=== PATIENT | male | born 1950 | race Caucasian/White ===

== ENCOUNTER 2016-06-18 09:35 | Day surgery (SDC) | payer MEDICARE, OTHER ==
--- NOTE | ~2016-06-18 | EGD ---
EGD REPORT [facility] [address] [address] NAME: RACHID VILLARREAL : [birth year] STATUS : REG [facility]#: [id number] AGE: 65 ADM/REG DATE : 06/18/16 MR#: [id number] REPORT SERV DATE: 06/18/16 DICTATED BY: GLEN BOLES DATE: 06/18/16 REPORT STATUS : Draft [facility]: [facility] DATE: 06/18/16 Pulmonology Patient Name: Rachid Villarreal Procedure Date: 06/18/2016 10:49 AM Date of : 1950 Attending MD: MAG BOLES MD Procedure Date No Time: 06/18/2016 Procedure: EBUS Indications: RUL lung nodule, CML, smoker Providers: MAG BOLES MD Referring MD: ANAHI RODRIGUEZ Medicines: Lidocaine 2% 20 mL Complications: No immediate complications Procedure: Pre-Anesthesia Assessment: - ASA Grade Assessment: III - A patient with severe systemic disease. - A History and Physical has been performed. Patient meds and allergies have been reviewed. The risks and benefits of the procedure and the sedation options and risks were discussed with the patient. All questions were answered and informed consent was obtained. Patient identification and proposed procedure were verified prior to the procedure by the physician and the nurse in the procedure room. Mental Status Examination: alert and oriented. Airway Examination: normal oropharyngeal airway. Respiratory Examination: clear to auscultation. CV Examination: normal and RRR, no murmurs, no S3 or S4. ASA Grade Assessment: III - A patient with severe systemic disease. After reviewing the risks and benefits, the patient was deemed in satisfactory condition to undergo the procedure. The anesthesia plan was to use general anesthesia. Immediately prior to administration of medications, the patient was re-assessed for adequacy to receive sedatives. The heart rate, respiratory rate, oxygen saturations, blood pressure, adequacy of pulmonary ventilation, and response to care were monitored throughout the procedure. The physical status of the patient was re-assessed after the procedure. After obtaining informed consent, the Bronchoscope was introduced through the mouth, via the endotracheal tube (the patient was intubated for the procedure) and advanced to the tracheobronchial tree. the BF [id number] was introduced through the mouth, via the endotracheal tube (the patient was intubated for the procedure) and advanced to the tracheobronchial tree. EGD REPORT [address] [address] NAME: RACHID VILLARREAL : [birth year] STATUS : REG [facility] [place] PAT#: [id number] AGE: 65 ADM/REG DATE : 06/18/16 MR#: [id number] REPORT SERV DATE: 06/18/16 DICTATED BY: GLEN BOLES DATE: 06/18/16 REPORT STATUS : Draft TRANSCRIBED BY: [facility] DATE: 06/18/16 The procedure was accomplished without difficulty. The patient tolerated the procedure well. Findings: The endotracheal tube is in good position. The visualized portion of the trachea is of normal caliber. The gisell is sharp. The tracheobronchial tree was examined to at least the first subsegmental level. Bronchial mucosa and anatomy are normal; there are no endobronchial lesions, and no secretions. EBUS TBNA of lymph node level 11L x 4 passes for cytology EBUS TBNA of lymph node level 7 x 4 passes for cytology EBUS TBNA of lymph node level 4R x 4 passes for cytology EBUS TBNA of lymph node level 11R x 4 passes for cytology and 2 for flow cytometry Using SuperDimension Edge catheter 180, peripheral probe EBUS 17s, and fluoroscopy, I performed the following biopsies: RUL lung nodule transbronchial needle aspirates x 6 passes for cytology RUL lung nodule transbronchial tri needle and tradition brush biopsy x 3 pass for cytology RUL lung nodule transbronchial forcep biopsies x 6 passes for histopathology ADRIANE endobronchial brush biopsies were performed for the Percepta Bronchoalveolar lavage was performed in the right upper lobe of the lung and sent for cell count, cytology, bacterial culture, viral smears \\T\\ culture, and fungal and AFB analysis. 180 mL of fluid were instilled. 20 mL were returned. The return was blood-tinged and cellular. Impression: Rapid On-Site Evaluation (ELIZABETH): Preliminary cytology is lymph node stations 11L,7, 4R, and 11R are negative for malignancy with lymph node tissue. The RUL lung lesion is a "SUSPICIOUS FOR ADENOCARCINOMA" (final results are pending). Recommendation: - Await test results. - Chest X-ray. - Follow up in clinic. - Follow up with referring physician. - Complete pulmonary function tests. Attending Participation: I personally performed the entire procedure. MAG BOLES MD 06/18/2016 12:18 PM This report has been signed electronically. Number of Addenda: 0 Note Initiated On: 06/18/2016 10:49 AM [address] [address]
--- NOTE | ~2016-06-18 | CN ---
Consultation Report [place] [address] [facility] [place]. [address] NAME: RACHID VILLARREAL : [birth year] STATUS : [facility]#: [id number] AGE: 65 ADM/REG DATE : 06/18/16 MR#: [id number] REPORT SERV DATE: 06/18/16 DICTATED BY: STEPHEN BOLES DATE: 06/18/16 REPORT STATUS : Draft TRANSCRIBED BY: MODL DATE: 06/18/16 CONSULTATION DATE OF CONSULTATION: Dear Dr. Piedra: Thank you for requesting my opinion regarding evaluation and management of Mr. Rachid Villarreal's suspicious FDG-avid right apical pulmonary nodule. The patient is a pleasant 65-year-old gentleman with a significant past medical history of COPD, CML/myelodysplastic syndrome, essential hypertension, anxiety, coronary artery disease, hyperlipidemia, hypothyroidism, GERD, history of prior respiratory failure and influenza, who presents to [facility] for formal evaluation of an enlarging stellate lesion in the right apex, compatible with potential neoplasm. The patient's PET-CT scan on 06/11/2016 demonstrated a maximum SUV of 1.2, rising up to 1.8 on delayed images. There was no additional pulmonary nodule, pleural effusion, mediastinal lymphadenopathy, or pericardial effusion appreciated. There was no evidence of extrathoracic disease. Mr. Villarreal states that he has chronic shortness of breath, well localized to the chest, nonradiating with no significant alleviating or exacerbating factors. He denies any current weight gain or weight loss, nausea, vomiting, diarrhea, or constipation. REVIEW OF SYSTEMS: A detailed 14-point review of systems was completed. Pertinent positives and negatives are listed above. PAST MEDICAL HISTORY: 1. History of chronic hypoxic respiratory failure. 2. Influenza A, requiring recent admission. 3. COPD. 4. Hypertension. 5. CML/myelodysplastic syndrome, status post chemotherapy, under the care of Dr. Piedra. 6. Anxiety. 7. Right upper lobe lung nodule. 8. Coronary artery disease, status post coronary artery bypass graft surgery. 9. Hyperlipidemia, mixed type. 10.Hypothyroidism. 11.GERD. 12.Osteoarthritis. PAST SURGICAL HISTORY: 1. As above. 2. Hernia repair. 3. Bilateral knee replacement. Consultation Report [place] [address] [place]. [address] NAME: RACHID VILLARREAL : 50 STATUS : [facility] PAT#: [id number] AGE: 65 ADM/REG DATE : 06/18/16 MR#: [id number] REPORT SERV DATE: 06/18/16 DICTATED BY: STEPHEN BOLES DATE: 06/18/16 REPORT STATUS : Draft TRANSCRIBED BY: MARIO DATE: 06/18/16 4. Partial thyroidectomy. 5. CABG and cardiac stent. FAMILY HISTORY: Coronary artery disease and diabetes. SOCIAL HISTORY: The patient quit smoking approximately 15 years ago. 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 He denies any significant alcohol or illicit drug abuse. PHYSICAL EXAMINATION: VITAL SIGNS: Reviewed and located in the paper chart. GENERAL: Chronically ill-appearing gentleman, in no acute distress. Able to communicate in full paragraphs at a time. HEENT: Normocephalic and atraumatic. Pupils are equal, round, and reactive to light and accommodation. Posterior oropharynx is clear. NECK: No JVD. No LAD. Trachea midline. CARDIOVASCULAR: Regular rate and rhythm. S1 and S2 present. LUNGS: Clear to auscultation bilaterally. ABDOMEN: Nontender and nondistended. Positive bowel sounds. EXTREMITIES: No clubbing, cyanosis, or edema. SKIN: No new rashes, lesions, or ulcers. PSYCHIATRIC: Alert and oriented x3. Appropriate mood and affect. Appropriate insight and judgment. NEUROLOGIC: 5/5 strength in upper and lower extremities. Cranial nerves II through XII intact. Gait not tested. DTRs not performed. LABORATORY DATA: PET-CT scan on 06/12/2016 was personally reviewed by me and I agree with the following interpretation. Marginal FDG uptake in the right apical pulmonary nodule. Overall size of the lesion has changed very little in the last year. ASSESSMENT AND PLAN: Mr. Rachid Villarreal is an extremely pleasant 65-year-old gentleman with a significant past medical history of prior heavy tobacco abuse, CML and chronic obstructive pulmonary disease, who presents to [facility] for formal evaluation of an enlarging right upper lobe stellate pulmonary nodule, CT scan on 05/19/2016 measured 1.6 x 0.8 cm, PET CT scan on 06/11/2016 demonstrated maximum SUV rising from 1.2 to 1.8 on delayed images. The clinical and radiographic presentation is most consistent with either a slow-growing malignancy such as adenocarcinoma in situ or adenocarcinoma or an inflammatory lesion. At this point, Mr. Villarreal needs an appropriate diagnostic intervention versus continued surveillance. The patient declined continued surveillance. He would like to pursue biopsy. We discussed in detail options including CT-guided needle biopsy, EBUS and navigation bronchoscopy, or thoracic surgery. After careful discussion of the risks, benefits and alternatives to each of these procedures, we agreed to proceed forward with EBUS and navigation bronchoscopy. The patient is aware that the procedure is associated with potential life-threatening risks, including lung collapse, respiratory failure, and even . Consultation Report [facility] [address] [facility] [place]. [address] NAME: RACHID VILLARREAL : 50 STATUS : [facility]#: [id number] AGE: 65 ADM/REG DATE : 06/18/16 MR#: [id number] REPORT SERV DATE: 06/18/16 DICTATED BY: STEPHEN BOLES DATE: 06/18/16 REPORT STATUS : Draft TRANSCRIBED BY: MARIO DATE: 06/18/16 A summary of my recommendations are as follows: 1. Proceed with EBUS and navigation bronchoscopy. 2. Pulmonary function tests were last performed on 03/08/2015, which demonstrated an FEV1 of 1.7 L or 49% predicted, consistent with severe airflow obstruction and a DLCO of 42%. The patient will require repeat pulmonary function tests to assess operative ability. If proven to have malignant disease, the patient may be a candidate for right upper lobe wedge resection/lobectomy or stereotactic body radiation therapy. 3. Follow up with Dr. Jovita Walters at [facility] in [place]. Thank you for allowing me to participate in Mr. Villarreal's care. RAVINDER/MARIO Stephen Boles M.D. / [id number] CC: Kadeem Schmidt M.D. Michael Stipanov, M.D.
--- NOTE | ~2016-06-18 | EGD ---
EGD REPORT [facility] [address] [address] NAME: RACHID VILLARREAL : [birth year] STATUS : [facility]#: [id number] AGE: 65 ADM/REG DATE : 06/18/16 MR#: [id number] REPORT SERV DATE: 06/20/16 DICTATED BY: GLEN BOLES DATE: 06/20/16 REPORT STATUS : Draft TRANSCRIBED BY: [facility] DATE: 06/20/16 Pulmonology Patient Name: Rachid Villarreal Procedure Date: 06/18/2016 10:49 AM Date of : 1950 Attending MD: MAG BOLES MD Procedure Date No Time: 06/18/2016 Procedure: EBUS Indications: RUL lung nodule, CML, smoker Providers: MAG BOLES MD Referring MD: ANAHI RODRIGUEZ Medicines: Lidocaine 2% 20 mL Complications: No immediate complications Procedure: Pre-Anesthesia Assessment: - ASA Grade Assessment: III - A patient with severe systemic disease. - A History and Physical has been performed. Patient meds and allergies have been reviewed. The risks and benefits of the procedure and the sedation options and risks were discussed with the patient. All questions were answered and informed consent was obtained. Patient identification and proposed procedure were verified prior to the procedure by the physician and the nurse in the procedure room. Mental Status Examination: alert and oriented. Airway Examination: normal oropharyngeal airway. Respiratory Examination: clear to auscultation. CV Examination: normal and RRR, no murmurs, no S3 or S4. ASA Grade Assessment: III - A patient with severe systemic disease. After reviewing the risks and benefits, the patient was deemed in satisfactory condition to undergo the procedure. The anesthesia plan was to use general anesthesia. Immediately prior to administration of medications, the patient was re-assessed for adequacy to receive sedatives. The heart rate, respiratory rate, oxygen saturations, blood pressure, adequacy of pulmonary ventilation, and response to care were monitored throughout the procedure. The physical status of the patient was re-assessed after the procedure. After obtaining informed consent, the Bronchoscope was introduced through the mouth, via the endotracheal tube (the patient was intubated for the procedure) and advanced to the tracheobronchial tree. the BF [id number] was introduced through the mouth, via the endotracheal tube (the patient was intubated for the procedure) and advanced to the tracheobronchial tree. EGD REPORT [address] [address] NAME: RACHID VILLARREAL : [birth year] STATUS : [facility]#: [id number] AGE: 65 ADM/REG DATE : 06/18/16 MR#: [id number] REPORT SERV DATE: 06/20/16 DICTATED BY: GLEN BOLES DATE: 06/20/16 REPORT STATUS : Draft TRANSCRIBED BY: [facility] DATE: 06/20/16 The procedure was accomplished without difficulty. The patient tolerated the procedure well. Findings: The endotracheal tube is in good position. The visualized portion of the trachea is of normal caliber. The gisell is sharp. The tracheobronchial tree was examined to at least the first subsegmental level. Bronchial mucosa and anatomy are normal; there are no endobronchial lesions, and no secretions. EBUS TBNA of lymph node level 11L x 4 passes for cytology EBUS TBNA of lymph node level 7 x 4 passes for cytology EBUS TBNA of lymph node level 4R x 4 passes for cytology EBUS TBNA of lymph node level 11R x 4 passes for cytology and 2 for flow cytometry Using SuperDimension Edge catheter 180, peripheral probe EBUS 17s, and fluoroscopy, I performed the following biopsies: RUL lung nodule transbronchial needle aspirates x 6 passes for cytology RUL lung nodule transbronchial tri needle and tradition brush biopsy x 3 pass for cytology RUL lung nodule transbronchial forcep biopsies x 6 passes for histopathology ADRIANE endobronchial brush biopsies were performed for the Percepta Bronchoalveolar lavage was performed in the right upper lobe of the lung and sent for cell count, cytology, bacterial culture, viral smears \\T\\ culture, and fungal and AFB analysis. 180 mL of fluid were instilled. 20 mL were returned. The return was blood-tinged and cellular. Impression: Rapid On-Site Evaluation (ELIZABETH): Preliminary cytology is lymph node stations 11L,7, 4R, and 11R are negative for malignancy with lymph node tissue. The RUL lung lesion is a "SUSPICIOUS FOR ADENOCARCINOMA" (final results are pending). Recommendation: - Await test results. - Chest X-ray. - Follow up in clinic. - Follow up with referring physician. - Complete pulmonary function tests. Attending Participation: I personally performed the entire procedure. MAG BOLES MD 06/18/2016 12:18 PM This report has been signed electronically. Number of Addenda: 0 Note Initiated On: 06/18/2016 10:49 AM [address] [address]
[~2016-06-18 09:35] MED LIST: ADVAIR INH; ADVAIR250 INH; ALBUTEROL0.63 MG/3 INH; ATV1 PO; COMBIVENT INH; COMBIVENT RESPIM4 GM INH; CRESTOR5 MG PO; FISH-EPA1000 MG PO; FLOMAX4 PO; FLONASE NAS; HALF81 PO; ISOSORB DIN30 MG PO; L40 PO; METHOC500B PO; MUCINEX600 MG PO; NEUR100 PO; NIACIN 500 PO; NITROSPRAY SL; NITROSTAT0.4 MG SL; PERCOCET 10/3251 TAB PO; PERCOCET1 TA2 PO; PLAVIX PO; PR12.5 PO; PRAVAC PO; PRED50B PO; PRILOSEC40 MG PO; PRIN20 PO; PRIN5 PO; PROAIR HFA INH; PROAIRRESP INH; PROTONIX PO; RANITIDINE300 MG PO; SPIRIVA INH; TAMIFLU PO; TASIGNA150 MG PO
[2016-06-18 10:17] LABS: BASOPHILS 0.5 %; BASOPHILS ABSOLUTE 0.04 10/3/uL (0.0-0.16); EOSINOPHILS 3.6 %; EOSINOPHILS ABSOLUTE 0.27 10/3/uL (0.0-0.53); HEMOGLOBIN 12.1 g/dL (13.6-17.8); IMMATURE GRANULOCYTES 0.1 %; IMMATURE GRANULOCYTES ABSOLUTE 0.01 10/3/uL (0.0-0.11); LYMPHOCYTES 19.8 %; MEAN CORPUS HGB CONC 32.7 g/dL (32.0-36.0); MEAN PLATELET VOLUME 9.3 fL (9.2-13.0); MONOCYTES 7.3 %; MONOCYTES ABSOLUTE 0.55 10/3/uL (0.21-1.20); NEUTROPHILS 68.7 %; NEUTROPHILS ABSOLUTE 5.21 10/3/uL (2.02-8.40); PLATELET COUNT 173 10/3/uL (150-400); RBC DISTRIBUTION WIDTH 13.2 % (12.0-16.0)
[2016-06-18 10:25] LABS: MANUAL DIFF NO %; MEAN CORPUSCULAR HEMOGLOB 32.6 pg (26.0-34.0); MEAN CORPUSCULAR VOLUME 99.7 fL (80-100); RED CELL COUNT 3.71 10/6/uL (4.7-6.1); WHITE BLOOD CELLS 7.6 10/3/uL (4.5-10.5)
[2016-06-18 10:27] LABS: INTERNATIONAL NORMAL RATI 1.2 UNITS (-); PARTIAL THROMBO TIME 28.8 SEC (22.5-37.2); PROTIME (NOT ORD) 14.9 SEC (12.0-14.5)
[2016-06-18 10:29] LABS: BUN (BLOOD UREA NITROGEN) 10 MG/DL (6-23); CALCIUM, SERUM 8.6 MG/DL (8.5-10.4); CHLORIDE, SERUM 100 MMOL/L (96-112); CO2 (CARBON DIOXIDE) 31 MMOL/L (24-34); CREATININE 0.73 MG/DL (0.70-1.30); GFR AFRICAN AMERICAN 113 ML/MIN (>=60); GFR NON AFRICAN AMERICAN 97 ML/MIN (>=60); GLUCOSE, SERUM 131 MG/DL (60-99); POTASSIUM, SERUM 4.3 MMOL/L (3.5-5.3); SODIUM, SERUM 140 MMOL/L (135-148)
[2016-06-18 14:50] LABS: BD FL SOURCE (NOT ORD) BAL
[2016-06-18 15:43] LABS: BD FL LYMPH (NOT ORD) 8 %; BF BASO (NOT OF) 0 %; BF LARGE MONONUCLEAR 84 %; BODY FLUID EOS (NOT ORD) 0 %; BODY FLUID SEG (NOT ORD) 8 %
[2016-06-18 17:35] LABS: BF TOTAL CELL CT (NOT ORD 28 /MM3; BODY FLUID RBC (NOT ORD) 2000 /MM3
[2016-06-26] MEDS ORDERED: COMBIVENT RESPIM4 GM INH (14:38)
== END 2016-06-18 15:29 | disposition home or self-care (01) ==
LOC: DMU 09:35
PROVIDERS: Internal Medicine
PROC: 07B74ZX Excision of Thorax Lymphatic, Percutaneous Endoscopic Approach, Diagnostic (ICD-10-PCS; principal; 2016-06-18 11:00)
PROC: 0BB48ZX Excision of Right Upper Lobe Bronchus, Via Natural or Artificial Opening Endoscopic, Diagnostic (ICD-10-PCS; 2016-06-18 11:00)
PROC: 0B948ZX Drainage of Right Upper Lobe Bronchus, Via Natural or Artificial Opening Endoscopic, Diagnostic (ICD-10-PCS; 2016-06-18 11:00)
DX: R91.8 Other nonspecific abnormal finding of lung field (principal); I25.10 Atherosclerotic heart disease of native coronary artery without angina pectoris; C92.Z0 Other myeloid leukemia not having achieved remission; J44.9 Chronic obstructive pulmonary disease, unspecified; I10 Essential (primary) hypertension; K21.9 Gastro-esophageal reflux disease without esophagitis; E03.9 Hypothyroidism, unspecified; Z95.1 Presence of aortocoronary bypass graft; Z88.5 Allergy status to narcotic agent; E78.00 Pure hypercholesterolemia, unspecified; Z87.891 Personal history of nicotine dependence; Z87.01 Personal history of pneumonia (recurrent); Z96.653 Presence of artificial knee joint, bilateral; Z98.890 Other specified postprocedural states; Z79.899 Other long term (current) drug therapy
CPT/HCPCS: 71010; 80048; 85025; 85610; 85730; 87015; 87070; 87101; 87102; 87116; 87205; 88112; 88172; 88173; 88305; 88333; 89051; 93005; C1725; C1769; J2370; J2405; J2710; J3010

== ENCOUNTER 2016-07-04 06:36 | Inpatient (IN) | payer MEDICARE, OTHER ==
[2016-06-28 09:48] LABS: BASOPHILS 0.5 %; BASOPHILS ABSOLUTE 0.05 10/3/uL (0.0-0.16); EOSINOPHILS 1.4 %; EOSINOPHILS ABSOLUTE 0.13 10/3/uL (0.0-0.53); IMMATURE GRANULOCYTES 0.2 %; IMMATURE GRANULOCYTES ABSOLUTE 0.02 10/3/uL (0.0-0.11); LYMPHOCYTES 17.4 %; LYMPHOCYTES ABSOLUTE 1.59 10/3/uL (0.67-4.30); MEAN CORPUS HGB CONC 32.9 g/dL (32.0-36.0); MEAN PLATELET VOLUME 8.4 fL (9.2-13.0); MONOCYTES 5.5 %; NEUTROPHILS ABSOLUTE 6.84 10/3/uL (2.02-8.40); RBC DISTRIBUTION WIDTH 14.6 % (12.0-16.0); WHITE BLOOD CELLS 9.1 10/3/uL (4.5-10.5)
[2016-06-28 09:49] LABS: HEMATOCRIT 42.5 % (40.0-51.0); MANUAL DIFF NO %; MEAN CORPUSCULAR HEMOGLOB 27.3 pg (26.0-34.0); MEAN CORPUSCULAR VOLUME 82.8 fL (80-100); PLATELET COUNT 251 10/3/uL (150-400); RED CELL COUNT 5.13 10/6/uL (4.7-6.1)
[2016-06-28 09:57] LABS: INTERNATIONAL NORMAL RATI 1.1 UNITS (-)
[2016-06-28 10:07] LABS: A/G RATIO 1.1 (0.7-1.9); ALBUMIN 3.7 G/DL (3.5-5.0); ALKALINE PHOSPHATASE 76 U/L (45-117); BUN (BLOOD UREA NITROGEN) 12 MG/DL (6-23); CALCIUM, SERUM 8.4 MG/DL (8.5-10.4); CHLORIDE, SERUM 107 MMOL/L (96-112); CO2 (CARBON DIOXIDE) 27 MMOL/L (24-34); GFR AFRICAN AMERICAN 81 ML/MIN (>=60); GFR NON AFRICAN AMERICAN 70 ML/MIN (>=60); GLOBULIN 3.4 G/DL (2.5-4.1); GLUCOSE, SERUM 93 MG/DL (60-99); POTASSIUM, SERUM 4.4 MMOL/L (3.5-5.3); SGOT(AST) 12 U/L (5-40); SGPT(ALT) 24 U/L (5-65); SODIUM, SERUM 141 MMOL/L (135-148); TOTAL BILIRUBIN 1.5 MG/DL (0-1.2); TOTAL PROTEIN 7.1 G/DL (6.0-8.5)
[2016-06-28 12:03] LABS: ASCORBIC ACID (UR NOT ORDER) NEG (NEG); BILIRUBIN, URINE NEGATIVE (NEG); KETONE, URINE NEGATIVE (NEG); LEUKOCYTE ESTERASE(NOT OR NEG (NEG); WBC (NOT ORDERED) (RFLEX) 1 (0-5)
--- NOTE | ~2016-07-04 | OP ---
Record Of Operation [facility] [address] [place]. [address] NAME: RODNEY LOAIZA : [birth year] STATUS : ADM IN PAT#: [id number] AGE: 65 ADM/REG DATE : 07/04/16 MR#: [id number] REPORT SERV DATE: 07/04/16 DICTATED BY: KAROLINE PISANO JR. DATE: 07/04/16 REPORT STATUS : Draft TRANSCRIBED BY: MODL DATE: 07/04/16 DATE OF PROCEDURE: 07/04/2016 PREOPERATIVE DIAGNOSES: Adenocarcinoma, right upper lobe, chronic obstructive pulmonary disease, coronary artery disease, status post previous coronary artery bypass surgery, hypertension, hyperlipidemia, myeloid leukemia, heart palpitations, and home oxygen. POSTOPERATIVE DIAGNOSES: Adenocarcinoma, right upper lobe; chronic obstructive pulmonary disease, coronary artery disease, status post previous coronary artery bypass surgery, hypertension, hyperlipidemia, myeloid leukemia, heart palpitations, and home oxygen. NAME OF OPERATION: Bronchoscopy, right upper lobe apical segmentectomy, complete mediastinal node dissection, kathleen stations 4R, 7, 9, 10R, and intercostal nerve block. SURGEON: Karoline Pisano M.D. RESIDENT SURGEON: Kris Saunders MD ART PREPARATOR: Karen Zarco. ANESTHESIA: General endotracheal. FINDINGS: The patient was noted to have mild adhesions within the chest cavity. There was an obvious tumor coming up to the visceral surface of the lung in the right upper lobe apical region. We were able to remove his right upper lobe apical segment with grossly margins very clear at the tumor. Mediastinal nodes were sampled in the right paratracheal, right mainstem bronchial, subcarinal, and inferior pulmonary ligament regions. Final pathology is pending. DETAILS OF OPERATION: After adequate general anesthesia, the patient was intubated. A bronchoscopy was performed noting no endobronchial lesions. Mucous secretions were evacuated. There was no contraindications to resection. A left-sided double-lumen endotracheal tube was then placed. The patient was then positioned in the left lateral decubitus position with the right chest was prepped and draped in routine sterile fashion. A small incision was made overlying the lower intercostal space. A separate anterior trocar incision was also made. Through these two incision sites, the chest was explored. The tumor was identified in the right upper lobe. The apical segment was delineated. We then used multiple firings of VELMA stapler to remove the apical segment of the right upper lobe. Tissue reinforcements were utilized. The vein and vascular structure was preserved to the majority of the right upper lobe. The specimen was placed in a specimen bag and withdrawn through the anterior trocar site. Nodes in the right mainstem bronchial region, right paratracheal, subcarinal, and inferior pulmonary ligament regions were removed. An intercostal nerve block was performed. A 20-Norwegian chest tube was placed. The lung was reinflated. The trocar sites were closed with running Vicryl sutures. The skin was closed with running monofilament suture. A Dermabond dressing was applied. The procedure was terminated this point. The patient tolerated the procedure well and taken back to recovery Record Of [address] [address] NAME: RODNEY LOAIZA : [birth year] STATUS : ADM IN [facility]#: [id number] AGE: 65 ADM/REG DATE : 07/04/16 MR#: [id number] REPORT SERV DATE: 07/04/16 DICTATED BY: KAROLINE PISANO JR. DATE: 07/04/16 REPORT STATUS : Draft TRANSCRIBED BY: MARIO DATE: 07/04/16 room in stable condition. JOE/MARIO Karoline Pisano Jr., M.D. / [id number] CC: Kadeem Downey Jr., M.D. Pamela Sud, M.D. Andrew H Fowler, M.D.
[2016-07-05 05:46] LABS: BASOPHILS 0.1 %; BASOPHILS ABSOLUTE 0.01 10/3/uL (0.0-0.16); EOSINOPHILS 0 %; HEMATOCRIT 39.9 % (40.0-51.0); HEMOGLOBIN 12.9 g/dL (13.6-17.8); IMMATURE GRANULOCYTES 0.4 %; IMMATURE GRANULOCYTES ABSOLUTE 0.06 10/3/uL (0.0-0.11); LYMPHOCYTES 3.1 %; LYMPHOCYTES ABSOLUTE 0.53 10/3/uL (0.67-4.30); MEAN CORPUS HGB CONC 32.3 g/dL (32.0-36.0); MEAN CORPUSCULAR HEMOGLOB 26.6 pg (26.0-34.0); MEAN CORPUSCULAR VOLUME 82.3 fL (80-100); MEAN PLATELET VOLUME 8.5 fL (9.2-13.0); MONOCYTES 5.6 %; MONOCYTES ABSOLUTE 0.95 10/3/uL (0.21-1.20); NEUTROPHILS 90.8 %; NEUTROPHILS ABSOLUTE 15.53 10/3/uL (2.02-8.40); PLATELET COUNT 225 10/3/uL (150-400); RBC DISTRIBUTION WIDTH 14.7 % (12.0-16.0); RED CELL COUNT 4.85 10/6/uL (4.7-6.1)
[2016-07-05 05:48] LABS: MANUAL DIFF NO %; WHITE BLOOD CELLS 17.1 10/3/uL (4.5-10.5)
[2016-07-05 06:05] LABS: BUN (BLOOD UREA NITROGEN) 14 MG/DL (6-23); CALCIUM, SERUM 7.7 MG/DL (8.5-10.4); CHLORIDE, SERUM 108 MMOL/L (96-112); CO2 (CARBON DIOXIDE) 21 MMOL/L (24-34); CREATININE 1.04 MG/DL (0.70-1.30); GFR AFRICAN AMERICAN 87 ML/MIN (>=60); GFR NON AFRICAN AMERICAN 75 ML/MIN (>=60); GLUCOSE, SERUM 139 MG/DL (60-99); POTASSIUM, SERUM 4.7 MMOL/L (3.5-5.3); SODIUM, SERUM 139 MMOL/L (135-148)
[2016-07-05] MEDS ORDERED: PCET PO (08:49)
== END 2016-07-05 13:02 | disposition home or self-care (01) | DRG 164 ==
LOC: SDC/OF 06:36 → PACU 11:16 → 5NO 13:45
PROVIDERS: Thoracic Surgery (Cardiothoracic Vascular Surgery)
PROC: 07T74ZZ Resection of Thorax Lymphatic, Percutaneous Endoscopic Approach (ICD-10-PCS; 2016-07-04)
PROC: 3E0T3BZ Introduction of Anesthetic Agent into Peripheral Nerves and Plexi, Percutaneous Approach (ICD-10-PCS; 2016-07-04)
PROC: 0BBC4ZZ Excision of Right Upper Lung Lobe, Percutaneous Endoscopic Approach (ICD-10-PCS; principal; 2016-07-04 08:15)
DX: C34.11 Malignant neoplasm of upper lobe, right bronchus or lung (principal); C92.90 Myeloid leukemia, unspecified, not having achieved remission; Z99.81 Dependence on supplemental oxygen; J44.9 Chronic obstructive pulmonary disease, unspecified; I25.10 Atherosclerotic heart disease of native coronary artery without angina pectoris; Z95.1 Presence of aortocoronary bypass graft; I10 Essential (primary) hypertension; E78.5 Hyperlipidemia, unspecified; Z95.5 Presence of coronary angioplasty implant and graft; Z87.891 Personal history of nicotine dependence
CPT/HCPCS: 36415; 71020; 80048; 80053; 81001; 82962; 83036; 85025; 85610; 86850; 86900; 86901; 87641; 88305; 88307; 88331; 93005; 94640; A9270-GY; J0690; J1720; J2250; J2370; J2405; J2710; J2795; J3010; P9045